=== PATIENT | male | born 1950 | race Caucasian/White ===

== ENCOUNTER 2017-01-17 11:17 | Emergency (ER) | payer MEDICARE, BC ==
[2017-01-17 12:39] LABS: BASOPHILS 0.2 % (0-2); EOSINOPHILS 0.3 % (0-7); HEMATOCRIT 37.5 % (42.0-54.0); HEMOGLOBIN 12.9 g/dL (13.5-17.5); IMMATURE GRANULOCYTES 0.4 % (0-5); LYMPHOCYTES 10.3 % (15-50); MCH 35.1 pg (26.0-34.0); MCHC 34.4 g/dL (31.0-37.0); MCV 101.9 fL (80.0-100.0); MEAN PLATELET VOLUME 10.8 fL (7.4-10.4); MONOCYTES 7.7 % (2-11); NEUTROPHILS 81.1 % (40-80); PLATELET COUNT 241 10x3/uL (130-400); RBC 3.68 10x6/uL (4.20-6.10); RDW 13.2 % (11.5-14.5); WBC 13.6 10x3/uL (4.8-10.8)
[2017-01-17 15:28] LABS: ALBUMIN 3.4 g/dL (3.4-5.0); ALKALINE PHOSPHATASE 109 U/L (46-116); ALT (SGPT) 33 U/L (10-68); CALC OSMOLALITY 282 mosm/kg (275-300); CALCIUM 9.7 mg/dL (8.5-10.1); CHLORIDE - SERUM 101 mmol/L (98-107); CREATININE - SERUM 1.8 mg/dL (0.6-1.3); GLUCOSE 117 mg/dL (74-106); POTASSIUM - SERUM 4.2 mmol/L (3.5-5.1); PROTEIN - SERUM 7.2 g/dL (6.4-8.2); SODIUM 138 mmol/L (136-145); UREA NITROGEN 29 mg/dL (7-18); eGFR NON AFRICAN AMERICAN 40 mL/min (90-120)
[2017-01-17 15:35] LABS: CREATINE KINASE 79 UL (21-232); MAGNESIUM - SERUM 1.8 mg/dL (1.8-2.4); PRO BNP 456 pg/mL (0-125); TROPONIN-I < 0.017 ng/mL (0.000-0.060)
== END 2017-01-17 17:11 | disposition home or self-care (01) ==
LOC: D.ER 11:17
PROVIDERS: Emergency Medicine
DX: R55 Syncope and collapse (principal); N17.9 Acute kidney failure, unspecified; E86.0 Dehydration; D64.9 Anemia, unspecified; I10 Essential (primary) hypertension; F17.200 Nicotine dependence, unspecified, uncomplicated

== ENCOUNTER → 2017-03-01 10:45 | Outpatient (CLI) | payer MEDICARE, BC ==
[~2017-03-01] VITALS: Ht 177.8 cm; Wt 61.4 kg
--- NOTE | ~2017-03-01 | HEMODYNAMI ---
PATIENT:BOBBY SINGER MEDICAL RECORD: [id number] : 52 LOCATION:[facility] ADMISSION DATE: 03/01/17 Generatedon:03/01/201714:13 Patient name: BOBBY SINGER Patient #: [id number] SSN: : [birth year] Date of study: 03/01/2017 Page: Of Hemodynamic Procedure Report Patient Data Patient Demographics Procedure consent was obtained First Name: BOBBY Gender: Male Last Name: ENMANUEL : 1950 Middle Initial: FINA Age: 67 year(s) Patient #: [id number] Race: Unknown Additional ID: [id number] Contact details Address: [place] [address] State: [place] City: [place] Zip code: [address] Past Medical History Allergies: No known allergies Admission Admission Data Admission Date: 03/01/2017 Admission Time: 10:45 Height (in.): 60 BSA: 1.58 (m2) Height (cm.): 152.4 BMI: 26.37 (kg/m2) Weight (lbs.): 135 Weight (kg.): 61.23 Procedure Procedure Types Cath Procedure Diagnostic Procedure C [facility] w/Coronaries Miscellaneous Procedures Moderate Sedation up to 15 minutes Procedure Description Procedure Date Procedure Date: 03/01/2017 Procedure Start Time: 14:02 Procedure End Time: 14:08 Procedure Staff Name Function Jorge Mario MD Performing Physician Raúl Ivy RT Scrub Alyson Dunn RN Nurse Dharmesh Canales RN Regional Wildlife Agent Chantal Quezada RT Monitor Procedure Data Cath Procedure Fluoroscopy Diagnostic fluoroscopy Total fluoroscopy Time: 0.7 time: 0.7 min min Diagnostic fluoroscopy Total fluoroscopy dose: 137 dose: 137 mGy mGy Contrast Material Contrast Material Type Amount (ml) Isovue 300 39 Entry Location Entry Primary Successful Side Size Upsize Upsize Entry Closure Succes sful Closure Location (Fr) 1 (Fr) 2 (Fr) Remarks Device Remarks Radial Right 6 Fr artery Short Estimated blood loss: 12 ml Diagnostic catheters Device Type Used For End Catheter Placement Diagnostic Terumo 5Fr Procedure [place] 110cm catheter Procedure Complications No complications Procedure Medications Medication Administration Route Dosage Oxygen NC 2 l/min Lidocaine 2% added to field 20 Heparin Flush Bag added to field 2 bags (1000units/500ml NS) 0.9% NaCl I.V. 100 ml/hr Versed I.V. 1 mg Fentanyl I.V. 50 mcg Radial Cocktail I.A. 1 syringe (Verapomil 2mg/Nitro 400mcg/Heparin 1500units) Versed I.V. 1 mg Fentanyl I.V. 50 mcg Hemodynamics Rest BSA: 1.58 (m2) O2 Consumption: Estimated: 194.16 (ml/min) O2 Consumption indexed : Estimated:122.89 (ml/min/m) Heart Rate: 87 (bpm) Pressure Samples Time Site Value (mmHg) Purpose Heart Use Rate(bpm) 14:04 LV 89/25,2 Snapshot 87 14:04 AO 106/70(87) Pullback 68 14:04 LV 90/-1,2 Pullback 68 Gradients Valve Time Site 1 Site 2 Mean SEP/DFP Peak To Heart Use (mmHg) (sec/min) Peak Rate (mmHg) (bpm) Aortic 14:04 LV AO 0 68 90/-1,2 106/70(87) Calculations Valve P-P Mean Valve Index Valve Source Name Gradient Area Flow (cm2) Aortic 0 0 Snapshots Pre Cath Intra NCS Post Cath Vital Signs Time Heart Resp SPO2 etCO2 [id number] NIBP (mmHg) Rhythm Pain Sedation Rate (ipm) (%) (mmHg) (mmHg) Status Level (bpm) 13:54:37 72 18 98 0 0 140/87(121) NSR 0 (11) 10(A) , No pain 14:01:15 75 16 98 0 0 138/91(118) NSR 0 (11) 9(A) , No pain 14:05:27 78 15 97 0 0 117/80(95) NSR 0 (11) 9(A) , No pain 14:10:38 77 16 97 0 0 129/86(105) NSR 0 (11) 10(A) , No pain Medications Time Medication Route Dose Verified Delivered Reason Notes Effectiveness by by 13:50:31 Oxygen NC 2 l/min Jorge Shields used for [facility] Miguel Dunn entry level java developer 13:50:41 Lidocaine 2% added 20ml Jorge Patel for local to vial [facility] anesthetic field MD MOCK 13:50:48 Heparin Flush added 2 bags Jorge Patel used for Bag to [facility] procedure (1000units/500ml field MD MOCK NS) 13:50:56 0.9% NaCl I.V. 100 Jorge Shields Per ml/hr St. Miguel rojas MD 13:55:35 Versed I.V. 1 mg Jorge Shields for sedation St. Miguel Dunn RN, MD 13:55:41 Fentanyl I.V. 50 mcg Jorge Shields for sedation St. Miguel Dunn RN, MD 14:02:00 Versed I.V. 1 mg Jorge Shields for sedation St. Miguel Dunn RN, MD 14:02:02 Radial Cocktail I.A. 1 Jorge Patel for (Verapomil syringe [facility] vasodilation 2mg/Nitro MD MOCK 400mcg/Heparin 1500units) 14:02:05 Fentanyl I.V. 50 mcg Jorge Shields for sedation St. Miguel Dunn RN, MD Procedure Log Time Note 13:33:41 Dharmesh Canales RN sent for patient. Start room use. 13:33:42 Time tracking: Regular hours 13:33:45 Plan of Care:Hemodynamics will remain stable., Cardiac rhythm will remain stable., Comfort level will be maintained., Respiratory function will remain adequate., Patient/ family verbilizes understanding of procedure., Procedure tolerated without complication., Recovers from procedure without complications.. 13:39:32 Patient received from Pre/Post Procedure Room to [facility] Alert and oriented. Tansferred to table in Supine position. 13:39:33 Warm blankets applied, and alicia hugger turned on for patient comfort. 13:39:34 Correct patient and procedure confirmed by team. 13:39:38 Signed procedure consent form obtained from patient. 13:40:14 H&P Date Dictated: 01/29/2017 Within 30 days and on chart., H&P Addendum completed by physician on day of procedure. (MUST COMPLETE FOR ALL OUTPATIENTS). 13:40:16 Pre-procedure instructions explained to patient. 13:40:19 Family in waiting room. 13:40:22 Patient NPO since Midnight. 13:40:39 Patient allergic to No known allergies 13:40:48 Is the patient allergic to Iodine/contrast media? No. 13:40:52 Is patient on blood thinner?No 13:40:58 Patient diabetic? No. 13:41:02 Snore? Yes 13:41:03 Sleep apnea? No 13:41:24 IV patent on arrival in left forearm with 0.9% NaCl at [facility]. 13:41:38 Lab results completed and on chart. 13:50:31 Oxygen 2 l/min NC was administered by Alyson Dunn RN; used for procedure; 13:50:41 Lidocaine 2% 20ml vial added to field was administered by Jorge Mario MD; for local anesthetic; 13:50:48 Heparin Flush Bag (1000units/500ml NS) 2 bags added to field was administered by Jorge Mario MD; used for procedure; 13:50:56 0.9% NaCl 100 ml/hr I.V. was administered by Alyson Dunn RN; Per physician; 13:54:57 Right Radial & Right Groin area was prepped with chlora-prep and draped in sterile fashion 13:54:59 Alarms reviewed by R. N. 13:55:01 Sharps counted by scrub and verified by R.N. 13:55:03 Physician arrived 13:55:04 --------ALL STOP TIME OUT------ 13:55:04 Final Timeout: patient, procedure, and site verified with staff and physician. All members of the team are in agreement. 13:55:07 Right Radial & Right Groin site verified by team. 13:55:10 Physical assessment completed. ASA score P 2 - A patient with mild systemic disease as per Jorge Mario MD. 13:55:14 Sedation plan: IV Moderate Sedation Versed, Fentanyl 13:55:26 Use device set Radial Dx 13:55:27 Acist Syringe opened to sterile field. 13:55:28 Medline Cath Pack opened to sterile field. 13:55:28 Bag Decanter opened to sterile field. 13:55:29 Terumo 6Fr Slender Glidesheath opened to sterile field. 13:55:29 St Juliano 260cm J .035 wire opened to sterile field. 13:55:29 Acist Hand Control opened to sterile field. 13:55:30 Acist Manifold opened to sterile field. 13:55:30 Tegaderm 4 x 4 opened to sterile field. 13:55:32 MBrace Wrist Support opened to sterile field. 13:55:35 Versed 1 mg I.V. was administered by Alyson Dunn RN; for sedation; 13:55:41 Fentanyl 50 mcg I.V. was administered by Alyson Dunn RN; for sedation; 13:56:08 Patient Height : 60 cm 13:56:22 Patient Weight : 135 kg 13:57:29 Vital chart was started 14:02:00 Versed 1 mg I.V. was administered by Alyson Dunn RN; for sedation; 14:02:02 Radial Cocktail (Verapomil 2mg/Nitro 400mcg/Heparin 1500units) 1 syringe I.A. was administered by Jorge Mario MD; for vasodilation; 14:02:05 Fentanyl 50 mcg I.V. was administered by Alyson Dunn RN; for sedation; 14:02:26 Procedure started. 14:02:26 Full Disclosure recording started 14:02:37 Local anesthetic to right radial artery with Lidocaine 2% by Jorge Mario MD.INITIAL ACCESS ONLY 14:02:49 A 6 Fr Short sheath was inserted into the Right Radial artery 14:03:17 A Diagnostic Terumo 5Fr [place] 110cm catheter was advanced over the wire and used for Procedure. 14:03:28 Zero performed for pressure channel P1 14:03:33 Zero performed for pressure channel P1 14:03:36 Zero performed for pressure channel P1 14:03:41 Zero performed for pressure channel P1 14:04:54 LV angiography performed. 14:05:01 RCA angiography performed. 14:06:07 LCA angiography performed. 14:06:11 Catheter removed. 14:06:18 Terumo TR Band Standard opened to sterile field. 14:06:56 Procedure ended.(Physican Out) 14:07:08 Fluoroscopy time 00.70 minutes. 14:07:19 Fluoroscopy dose: 137 mGy 14:07:19 Flurop Dose total: 137 14:07:24 Contrast amount:Isovue 300 39ml. 14:07:26 Sharps counted by scrub and verified by R.N. 14:07:31 TR band inflated with 10cc of air. 14:07:45 Post-procedure physical assessment completed. ASA score P 2 - A patient with mild systemic disease as per Jorge Mario MD. 14:07:48 Post procedure rhythm: unchanged. 14:07:51 Estimated blood loss: 12 ml 14:07:53 Post procedure instruction explained to patient.Patient verbalizes understanding. 14:07:56 Patient needs reinforcement of post procedure teaching. 14:08:09 Procedure and supply charges have been captured, reviewed, submitted and are correct. 14:08:32 Procedure Complication : No complications 14:08:34 Vital chart was stopped 14:08:43 See physician's report for complete and final results. 14:08:51 Report given to Pre/Post Procedure Room. 14:08:55 Patient transfered to Pre/Post Procedure Room with Stretcher. 14:08:58 Procedure ended. 14:08:58 Full Disclosure recording stopped 14:09:00 End room use (Document Last) Device Usage Item Name Manufacture Quantity Catalog Hospital Part Current Minimal Lot# / Number Charge Number Stock Stock Serial# Code Acist Acist 1 29495 [id number] 046572 [id number] 20 Syringe Medical Systems Inc Medline Cardinal 1 [id number] 686697 56228 577697 5 Cath Pack Health Bag Microtek 1 2001S 889020 69437 178914 5 DecZolpy [employer] Inc. Terumo 6Fr Terumo 1 [id number] 373535 680752 526042 [address] St Juliano 1 072676 949403 315390 631078 30 260cm J .035 wire Acist Hand Acist 1 16688 034369 367598 900762 5 Control Medical Systems Inc Acist Acist 1 40661 883793 241668 731542 5 Manifold Medical Systems Inc Tegaderm 4 3M 1 1626W 953963 834278 563855 5 x 4 MBrace Advanced 1 140-0250-00 209233 74247 168383 5 Wrist Vascular Support Dynamics Diagnostic Terumo 1 29-2608 861305 993566 490584 5 Terumo 5Fr [place] 110cm catheter Terumo TR Terumo 1 [id number] 715025 318607 293256 40 Band Standard Signature Audit [place] Stage Time Signature Unsigned Intra-Procedure 03/01/2017 Chantal Quezada 2:13:54 PM RT(R) Signatures Monitor : Chantal Quezada Signature : RT Date : Time : [address] [place] [address]
[~2017-03-01 10:45] MED LIST: TOPROL XL50 MG PO
[2017-03-01 11:18] VITALS: BP 188/104; Ht 177.8 cm; Wt 61.4 kg
[2017-03-01 11:35] LABS: BASOPHILS 0.2 % (0-2); EOSINOPHILS 1.5 % (0-7); HEMATOCRIT 36.2 % (42.0-54.0); HEMOGLOBIN 12.6 g/dL (13.5-17.5); IMMATURE GRANULOCYTES 0.3 % (0-5); LYMPHOCYTES 20.6 % (15-50); MCH 35.2 pg (26.0-34.0); MCHC 34.8 g/dL (31.0-37.0); MCV 101.1 fL (80.0-100.0); MEAN PLATELET VOLUME 10.7 fL (7.4-10.4); MONOCYTES 10.4 % (2-11); PLATELET COUNT 268 10x3/uL (130-400); RBC 3.58 10x6/uL (4.20-6.10); RDW 13.1 % (11.5-14.5); WBC 9.9 10x3/uL (4.8-10.8)
[2017-03-01 11:55] LABS: CALCIUM 9.1 mg/dL (8.5-10.1); CARBON DIOXIDE 25.7 mmol/L (21.0-32.0); CREATININE - SERUM 1.6 mg/dL (0.6-1.3); POTASSIUM - SERUM 4.7 mmol/L (3.5-5.1)
--- NOTE | 2017-03-01 15:13 | NUR ---
1445 VSS CHEST PAIN IS DENIED WILL MONITOR
--- NOTE | 2017-03-01 15:17 | NUR ---
DR CALZADA PRESENT AT BEDSIDE TALKING TO FAMILY VSS WITH TR BAND TO R/WRIST CDI
--- NOTE | 2017-03-02 08:33 | OP ---
PATIENT NAME: BOBBY SINGER MEDICAL RECORD: [id number] :52 LOCATION:D[facility] ADMISSION DATE: SURGEON: JAMES CALZADA MD DATE OF OPERATION: 03/01/2017 PROCEDURE: Left heart catheterization, selective coronary angiography, right radial approach. CATHETERS: A 5-[place] sheath, [place] catheter. The procedure was well tolerated. The patient returned to the pederson, sheath removed. TR band was placed. FINDINGS: Left ventriculography in 30-degree ODOM view: Normal wall motion, normal systolic function. CORONARY ANATOMY: LEFT MAIN: Left main is free of disease. LAD: LAD is free of disease in the diagonal system. CIRCUMFLEX: Circumflex is free of disease in the marginal system. RIGHT CORONARY ARTERY: Dominant artery, gives rise to PDA, free of disease. IMPRESSION: Normal systolic function. Normal coronary anatomy. TRANSINT:[id number] Voice Confirmation ID: [id number] DOCUMENT ID: [id number] JAMES CALZADA MD at 0833 CC: [id number] DICTATION DATE: 03/01/17 1410 JUNIOR SOFTWARE ENGINEER: 03/01/17 1721 DEP CLI 03/01/17 [facility] [address] [place] [address]
== END | disposition home or self-care (01) ==
LOC: D.CATH 10:45
PROVIDERS: Internal Medicine Interventional Cardiology
DX: R94.39 Abnormal result of other cardiovascular function study (principal); Z01.812 Encounter for preprocedural laboratory examination

== ENCOUNTER 2019-09-26 16:45 | Inpatient (IN) | payer MEDICARE, BC ==
[~2019-09-26] VITALS: Ht 177.8 cm; Wt 57.6 kg
[2019-09-26] VITALS (8 sets, daily range): BP systolic 123–179; BP diastolic 79–108; BMI 18.2
--- NOTE | ~2019-09-26 | HP ---
PATIENT: BOBBY SINGER MEDICAL RECORD: [id number] ACCOUNT: [id number] LOCATION:[facility] D.2311 : 52 ADMISSION DATE: 09/26/19 PCP: MAIKEL GILLETTE MD HISTORY AND PHYSICAL EXAMINATION CHIEF COMPLAINT: Cough. HISTORY OF PRESENT ILLNESS: A 69-year-old white male patient of mine presents in clinic today reporting cough for the past 1-2 weeks with shortness of breath. He is a current half pack a day smoker and had been smoking for about 45 years. On exam, the patient has decreased breath sounds in the left side. Chest x-ray showing hyperinflation with left pneumothorax 5 x 20; 25%, small left pleural effusion and some left lower lobe atelectasis. We will admit for further workup. PAST MEDICAL HISTORY: COPD and hypertension, hyperthyroidism, diverticulosis, chronic kidney disease stage III, macrocytic anemia, history of anterior uveitis, and internal hemorrhoids. PAST SURGICAL HISTORY: Colonoscopy in 2017. MEDICATIONS: Amlodipine 10 mg. ALLERGIES: No known drug allergies. SOCIAL HISTORY: The patient is a current smoker, moderate alcohol intake. Lives with at home, retired, works on the farm. REVIEW OF SYSTEMS: CONSTITUTIONAL: Denies fever or chills. HEENT: Normocephalic, atraumatic. NECK: Supple. CARDIOVASCULAR: Tachycardia. Denies chest pain. RESPIRATORY: Positive for cough, wheezing, and shortness of breath. GASTROINTESTINAL: No abdominal pain, nausea, vomiting, diarrhea. GENITOURINARY: No dysuria. SKIN: No rashes. NEUROLOGIC: No seizures or paralysis. No itching or hives. PHYSICAL EXAMINATION: GENERAL: No acute distress. HEENT: Normocephalic, atraumatic. NECK: Supple. LUNGS: Decreased breath sounds on the left side. No wheezing or rales. CARDIOVASCULAR: Tachycardic, regular sinus rhythm. ABDOMEN: Soft, nontender to palpation. Bowel sounds positive. MUSCULOSKELETAL: Full range of all extremities. NEUROLOGIC: Awake, alert, oriented times 3. SKIN: Intact. ASSESSMENT AND PLAN: 1. Spontaneous pneumothorax. 2. Chronic kidney disease stage III. 3. Hypertension. 4. Cough. HISTORY AND PHYSICAL [id number] BOBBY SINGER PLAN: We will admit to the hospital ICU. Consult pulmonology and interventional radiology. Further orders as written on chart. TRANSINT:[id number] Voice Confirmation ID: [id number] DOCUMENT ID: [id number] MAIKEL GILLETTE MD CC: [id number] DICTATION DATE: 09/26/19 163 RETAIL PRESENTATION SPECIALIST: 09/26/19 192 ADM IN [place] [address] [place] [address]
[2019-09-26] MEDS ORDERED: NORVASC10 MG PO (16:59)
--- NOTE | 2019-09-26 17:24 | NUR ---
PT TO ICU FROM ADMISSIONS. PT WALKING WITHOUT DIFFICULTY. NO SOB NOTED. PT STATES HE DOES GET NERVOUS AROUND DOCTORS (BP IS ELEVATED). O2 SAT 98% ON ROOM AIR. PT HOOKED UP TO VITALS. ORDERS ENTERED CONSULT TO IR AND PULMONOLOGY CALLED.
[2019-09-26 19:19] LABS: BASOPHILS 0.4 % (0-2); EOSINOPHILS 3.2 % (0-7); HEMATOCRIT 33.6 % (42.0-54.0); HEMOGLOBIN 11.7 g/dL (13.5-17.5); IMMATURE GRANULOCYTES 0.2 % (0-5); LYMPHOCYTES 13.9 % (15-50); MCH 35.7 pg (26.0-34.0); MCHC 34.8 g/dL (31.0-37.0); MCV 102.4 fL (80.0-100.0); MEAN PLATELET VOLUME 10.8 fL (7.4-10.4); MONOCYTES 7.6 % (2-11); NEUTROPHILS 74.7 % (40-80); PLATELET COUNT 273 10x3/uL (130-400); RBC 3.28 10x6/uL (4.20-6.10); RDW 13.8 % (11.5-14.5); WBC 11.7 10x3/uL (4.8-10.8)
[2019-09-26 20:12] LABS: ALBUMIN 3.1 g/dL (3.4-5.0); ANION GAP 14.8 mmol/L (8-16); BILIRUBIN - TOTAL 0.93 mg/dL (0.2-1.3); C-REACTIVE PROTEIN 3.3 mg/dL (0.0-0.9); CALCIUM 9.2 mg/dL (8.5-10.1); CARBON DIOXIDE 24.5 mmol/L (21.0-32.0); CREATININE - SERUM 2.1 mg/dL (0.6-1.3); POTASSIUM - SERUM 4.3 mmol/L (3.5-5.1); PROTEIN - SERUM 6.9 g/dL (6.4-8.2)
[2019-09-27] VITALS (22 sets, daily range): BP systolic 105–177; BP diastolic 63–99; Ht 177.8 cm; Wt 57.6 kg
[2019-09-27 04:36] LABS: BASOPHILS 0.1 % (0-2); EOSINOPHILS 0.1 % (0-7); HEMATOCRIT 32.1 % (42.0-54.0); IMMATURE GRANULOCYTES 0.3 % (0-5); LYMPHOCYTES 6.3 % (15-50); MCH 35.3 pg (26.0-34.0); MCHC 34.3 g/dL (31.0-37.0); MCV 102.9 fL (80.0-100.0); MEAN PLATELET VOLUME 11.2 fL (7.4-10.4); MONOCYTES 1.5 % (2-11); NEUTROPHILS 91.7 % (40-80); PLATELET COUNT 272 10x3/uL (130-400); RBC 3.12 10x6/uL (4.20-6.10); RDW 13.8 % (11.5-14.5)
[2019-09-27 04:48] LABS: WBC 6.7 10x3/uL (4.8-10.8)
[2019-09-27 04:58] LABS: ALBUMIN 2.9 g/dL (3.4-5.0); BILIRUBIN - TOTAL 1.02 mg/dL (0.2-1.3); CALCIUM 9.1 mg/dL (8.5-10.1); CARBON DIOXIDE 22.7 mmol/L (21.0-32.0); CREATININE - SERUM 1.9 mg/dL (0.6-1.3); MAGNESIUM - SERUM 1.6 mg/dL (1.8-2.4); PHOSPHOROUS 4.2 mg/dL (2.5-4.9); PROTEIN - SERUM 6.7 g/dL (6.4-8.2)
[2019-09-27 05:10] LABS: ANION GAP 17.5 mmol/L (8-16); POTASSIUM - SERUM 5.2 mmol/L (3.5-5.1)
[2019-09-27 05:24] LABS: INR 0.92 (0.85-1.17); PROTIME 12.4 SECONDS (11.6-15.0)
[2019-09-27 05:25] LABS: APTT 38.9 SECONDS (22.8-39.4)
--- NOTE | 2019-09-27 05:42 | NUR ---
1900 - REPORT RECEIVED, PT AAOX4, NO ACUTE DISTRESS NOTED. ASSESSMENT COMPLETED, SEE FLOWSHEET. PIV IN LEFT FOREARM, SEE IV FLOWSHEET. DR CAMARENA IN ROOM AT THIS TIME, WILL CONTINUE TO MONITOR. 2100 - PT DENIES SOB, MADE AWARE OF NPO STATUS. 2300 - PT RESTING IN BED, NO ACUTE DISTRESS NOTED. 0100 - NO CHANGES SINCE PREVIOUS STATUS. 0300 - REASSESSMENT COMPLETE, PT DENIES SOB 0500 - VITALS STABLE, NO ACUTE DISTRESS NOTED.
--- NOTE | 2019-09-27 08:09 | NUR ---
patient gone to radiology
--- NOTE | 2019-09-27 08:57 | NUR ---
patient arrived to unit
--- NOTE | 2019-09-27 12:18 | NUR ---
tiny airleak in ct chamber
--- NOTE | 2019-09-27 15:00 | NUR ---
no airleak in ct chamber during this time. 20 of suction. will continue to monitor
[2019-09-28] VITALS (15 sets, daily range): BP systolic 100–123; BP diastolic 60–83
[2019-09-28 04:19] LABS: BASOPHILS 0 % (0-2); EOSINOPHILS 0 % (0-7); HEMATOCRIT 30.6 % (42.0-54.0); HEMOGLOBIN 10.5 g/dL (13.5-17.5); IMMATURE GRANULOCYTES 0.3 % (0-5); MCH 35.4 pg (26.0-34.0); MCHC 34.3 g/dL (31.0-37.0); MONOCYTES 6.1 % (2-11); NEUTROPHILS 89.6 % (40-80); PLATELET COUNT 244 10x3/uL (130-400); RBC 2.97 10x6/uL (4.20-6.10); RDW 13.9 % (11.5-14.5)
[2019-09-28 04:23] LABS: WBC 19.3 10x3/uL (4.8-10.8)
[2019-09-28 04:28] LABS: INR 0.9 (0.85-1.17); PROTIME 12.1 SECONDS (11.6-15.0)
[2019-09-28 04:32] LABS: ANION GAP 14.3 mmol/L (8-16); CALCIUM 8.8 mg/dL (8.5-10.1); CARBON DIOXIDE 24.8 mmol/L (21.0-32.0); CREATININE - SERUM 2.3 mg/dL (0.6-1.3); MAGNESIUM - SERUM 1.6 mg/dL (1.8-2.4); PHOSPHOROUS 3.9 mg/dL (2.5-4.9)
[2019-09-28 04:53] LABS: POTASSIUM - SERUM 4.1 mmol/L (3.5-5.1)
--- NOTE | 2019-09-28 07:00 | NUR ---
report received. patient sleeping. easilya aroused. see assessment. see adl's. consents signed and in chart for bronch today with dr sethi. no airleak noticed in chamber. connected to 20 of suction. dressing cdi. diminished left lower lobe. will continue to monitor.
--- NOTE | 2019-09-28 09:04 | NUR ---
IR AT BEDSIDE
--- NOTE | 2019-09-28 10:30 | NUR ---
spoke with cupola charger insulation regarding moderate sedation.
--- NOTE | 2019-09-28 10:30 | NUR ---
DR CAMARENA AT BEDSIDE
--- NOTE | 2019-09-28 13:20 | NUR ---
ALERT AND ORIENTED. ADVANCING DIET.
--- NOTE | 2019-09-28 13:55 | NUR ---
gave report to ramos
--- NOTE | 2019-09-28 14:18 | NUR ---
RECEIVED PATIENT FROM ICU. ALERT AND ORIENTED. UP AD HANSEL. CHEST TUBE TO LEFT LATERAL SIDE ON CONTINUOUS SUCTION. NO C/O PAIN. NO S/S OF ACUTE DISTRESS NOTED. IV TO LEFT FOREARM, SL. SITE PATENT WITHOUT REDNESS OR SWELLING. DENIES ANY NEEDS AT THIS TIME. CALL LIGHT IN REACH. WILL CONTINUE TO MONITOR.
--- NOTE | 2019-09-28 16:09 | NUR ---
I have reviewed this patient and I concur with the Shift Assessment completed by the Licensed Practical Nurse today this shift.
--- NOTE | 2019-09-28 18:40 | NUR ---
ALERT AND ORIENTED. NO C/O PAIN. NO S/S OF ACUTE DISTRESS NOTED. DENIES ANY NEEDS AT THIS TIME. CALL LIGHT IN REACH. WILL CONTINUE TO MONITOR.
--- NOTE | 2019-09-28 21:08 | MORECARE ---
CASE MANAGEMENT DISCHARGE SUMMARY PATIENT: BOBBY SINGER UNIT: [id number] ADM DATE: 09/26/19 AGE: 69 : 51 SEX: M ROOM/BED: D.2236 AUTHOR: ELIE,DOC PHYSICIAN: REFERRING PHYSICIAN: MAIKEL GILLETTE MD DATE OF SERVICE: 09/28/19 Discharge Plan Patient Name: BOBBY SINGER Facility: [facility]:[place] : 1950 Planned Disposition: Home Anticipated Discharge Date: Discharge Date: Expected LOS: Initial Reviewer: [email or web address] Initial Review Date: 09/26/2019 Generated: 09/28/19 10:07 pm Comments DCP- Discharge Planning Updated by [email or web address]: Nora Baldwin on 09/28/19 8:[address] Patient Name: BOBBY SINGER Admission Status: Urgent Accout number: [id number] Admission Date: 09-26-2019 : 1950 Admission Diagnosis: Attending: LETA, Current LOS: 2 Anticipated DC Date: Planned Disposition: Home Primary Insurance: MEDICARE A & B Discharge Planning Comments: CM met with patient at bedside after explaining CM role and obtaining verbal consent. Patient lives at home with his [place] where he is independent with his care and plans to return there upon discharge. Patient feels this would be a safe discharge. CM discussed availability / needs of home health and medical equipment. Patient denies any discharge needs at this time. Patient states he will have his family drive him home upon discharge. CM will continue to follow and assist as needed with discharge planning / needs. Clinical Rehabilitation Specialist: Nora Baldwin DCPIA - Discharge Planning Initial Assessment Updated by [email or web address]: Nora Baldwin on 09/28/19 9:03 pm * Is the patient Alert and Oriented? Yes * How many steps to enter\exit or inside your home? * PCP LETA * Pharmacy [facility] * Preadmission Environment Home with Family * ADLs Independent * Equipment None * List name and contact numbers for known caregivers / representatives who currently or will assist patient after discharge: KIRBY SINGER -[facility]- [phone] * Verbal permission to speak to the caregivers and representatives has been obtained from the patient. Yes * Community resources currently utilized None * Additional services required to return to the preadmission environment? No * Can the patient safely return to the preadmission environment? Yes * Has this patient been hospitalized within the prior 30 days at any hospital? No Patient Name: BOBBY SINGER Page [id number] at 2108 All edits/amendments must be made on the electronic document DICTATION DATE: 09/28/192106 SHAMPOO ASSISTANT: ОЛЕГ 09/28/192106 RPT#: [id number] DC DATE: STATUS: ADM IN [facility] [address] [place] [address] END OF REPORT
--- NOTE | 2019-09-29 02:08 | NUR ---
PT RESTING IN BED. EYES CLOSED. NO SIGNS OF DISTRESS. BREATHING EVEN AND UNLABORED. IV SITE LT FA DRESSING CLEAN DRY AND INTACT. NO SIGNS OF INFECTION OR INFULTRATION. BOWEL SOUNDS ACTIVE. LT CHEST TUBE IN PLACE. AND TO SUCTION. NO LOWER LEG SWELLING PRESENT. WILL CONTINUE PLAN OF CARE. CALL LIGHT IN REACH. BED LOWERED AND LOCKED. BED RAILS UPX2.
--- NOTE | 2019-09-29 03:02 | NUR ---
I have reviewed this patient and I concur with the Shift Assessment completed by the Licensed Practical Nurse today this shift.
[2019-09-29 04:00] VITALS: BP 130/80
[2019-09-29 06:13] LABS: BASOPHILS 0.1 % (0-2); EOSINOPHILS 2.1 % (0-7); HEMATOCRIT 30.1 % (42.0-54.0); HEMOGLOBIN 10.3 g/dL (13.5-17.5); IMMATURE GRANULOCYTES 0.3 % (0-5); LYMPHOCYTES 15.3 % (15-50); MCH 35.6 pg (26.0-34.0); MCHC 34.2 g/dL (31.0-37.0); MCV 104.2 fL (80.0-100.0); MONOCYTES 7.2 % (2-11); PLATELET COUNT 228 10x3/uL (130-400); RBC 2.89 10x6/uL (4.20-6.10); RDW 14.4 % (11.5-14.5)
[2019-09-29 06:32] LABS: ANION GAP 13.1 mmol/L (8-16); CALCIUM 8.4 mg/dL (8.5-10.1); CARBON DIOXIDE 24.8 mmol/L (21.0-32.0); CREATININE - SERUM 2.2 mg/dL (0.6-1.3); MAGNESIUM - SERUM 1.7 mg/dL (1.8-2.4); PHOSPHOROUS 3.6 mg/dL (2.5-4.9); POTASSIUM - SERUM 3.9 mmol/L (3.5-5.1)
[2019-09-29 06:54] LABS: WBC 10.3 10x3/uL (4.8-10.8)
[2019-09-29 08:44] VITALS: BP 126/74
--- NOTE | 2019-09-29 09:00 | NUR ---
ALERT AND ORIENTED X4. CHEST TUBE INTACT TO LEFT CHEST MIDLINE. LUNGS CTA. HRRR. DENIES ANY PAIN OR DISCOMFORT AT THIS TIME. IV TO LEFT F/A WITH NO S/S OF INFECTION/INFILTRATION. ENCOURAGED TO USE CALL LIGHT FOR ASSIST.
[2019-09-29 12:09] LABS: FUNGUS STAIN Final report (())
--- NOTE | 2019-09-29 12:56 | NUR ---
NUTRITION F/U CHART REVIEWED. PT TOLERATING RENAL DIET WITH 100% INTAKE RECENT MEALS. WILL CONTINUE TO PROVIDE DIET, MONITOR PO INTAKE. RD FOLLOWING
[2019-09-29 14:24] VITALS: BP 118/67
[2019-09-29 15:10] LABS: ACID FAST SMEAR Negative (()); AFB SPECIMEN PROCESSING Concentration (())
[2019-09-29 16:28] VITALS: BP 118/70
--- NOTE | 2019-09-29 18:23 | NUR ---
IV INFILTRATED TO LEFT FOREARM AND CHANGED TO RIGHT FOREARM WITH 22G X 1 STICK. NO COMPLAINTS OF PAIN OR DISCOMFORT WITH CHEST TUBE INTACT.
[2019-09-29 20:00] VITALS: BP 116/71
[2019-09-30] VITALS: BP 109/65
[2019-09-30 04:00] VITALS: BP 118/67
[2019-09-30 05:38] LABS: BASOPHILS 0.2 % (0-2); EOSINOPHILS 3.4 % (0-7); HEMATOCRIT 28.7 % (42.0-54.0); HEMOGLOBIN 9.8 g/dL (13.5-17.5); IMMATURE GRANULOCYTES 0.3 % (0-5); LYMPHOCYTES 13.5 % (15-50); MCH 35.5 pg (26.0-34.0); MCHC 34.1 g/dL (31.0-37.0); MONOCYTES 8.5 % (2-11); NEUTROPHILS 74.1 % (40-80); PLATELET COUNT 215 10x3/uL (130-400); RBC 2.76 10x6/uL (4.20-6.10); RDW 14.8 % (11.5-14.5); WBC 9.7 10x3/uL (4.8-10.8)
[2019-09-30 05:51] LABS: ANION GAP 10.8 mmol/L (8-16); CALCIUM 8.4 mg/dL (8.5-10.1); CARBON DIOXIDE 25.1 mmol/L (21.0-32.0); MAGNESIUM - SERUM 1.8 mg/dL (1.8-2.4); PHOSPHOROUS 3.3 mg/dL (2.5-4.9); POTASSIUM - SERUM 3.9 mmol/L (3.5-5.1)
[2019-09-30 07:58] VITALS: BP 113/74
--- NOTE | 2019-09-30 09:00 | NUR ---
ALERT AND ORIENTED X4. LUNGS CTA WITH NO DYSPNEA NOTED. IV S/L TO RT. F/A WITH NO S/S OF INFECTION/INFILTRATION. ABDOMEN SOFT WITH BOEL SOUNDS NOTED X4. UP ADLIB. DENIES ANY PAIN OR DISCOMFORT AND ENCOURAGED TO USE CALL LIGHT FOR ASSIST.
[2019-09-30 12:24] VITALS: BP 125/75
[2019-09-30] MEDS ORDERED: Tessalon Perle PO (14:08)
[2019-09-30] MEDS ORDERED: MUCINEX DM ER1 EAC1 PO (14:08)
[2019-09-30] MEDS ORDERED: LEVAQUIN750 MG PO (14:11)
--- NOTE | 2019-09-30 15:52 | NUR ---
RX FOR CAM RAJAN DID NOT E SCRIBE. CALLED TO [facility], SPOKE WITH TRAM, PHARMACIST.
--- NOTE | 2019-09-30 16:15 | NUR ---
IV DISCONTINUED AND VERBALIZED UNDERSTANDING OF DISCHARGE INSTRUCTIONS. STABLE AT TIME OF DEPARTURE WITH FAMILY
[2019-10-01 03:01] LABS: IMMUNOGLOBULIN E 16 IU/mL (6-495)
--- NOTE | 2019-10-04 06:51 | MORECARE ---
CASE MANAGEMENT DISCHARGE SUMMARY PATIENT: MARCOS DISLA UNIT: [id number] ADM DATE: 09/26/19 AGE: 69 : 52 SEX: M ROOM/BED: D.2236 AUTHOR: ELIE,DOC PHYSICIAN: REFERRING PHYSICIAN: MAIKEL GILLETTE MD DATE OF SERVICE: 10/04/19 Discharge Plan Patient Name: MARCOS DISLA Facility: [facility]:[place] : 1950 Planned Disposition: Home Anticipated Discharge Date: Discharge Date: 09/30/2019 Expected LOS: 0 Initial Reviewer: [email or web address] Initial Review Date: 09/26/2019 Generated: 10/04/19 7:51 am Comments DCP- Discharge Planning Updated by [email or web address]: Nora Baldwin on 09/28/19 7:[address] Patient Name: MARCOS DISLA Admission Status: Urgent Accout number: [id number] Admission Date: 09-26-2019 : 1950 Admission Diagnosis: Attending: LETA, Current LOS: 2 Anticipated DC Date: Planned Disposition: Home Primary Insurance: MEDICARE A & B Discharge Planning Comments: CM met with patient at bedside after explaining CM role and obtaining verbal consent. Patient lives at home with his [place] where he is independent with his care and plans to return there upon discharge. Patient feels this would be a safe discharge. CM discussed availability / needs of home health and medical equipment. Patient denies any discharge needs at this time. Patient states he will have his family drive him home upon discharge. CM will continue to follow and assist as needed with discharge planning / needs. Molder Operator: Nora Baldwin DCPIA - Discharge Planning Initial Assessment Updated by [email or web address]: Nora Baldwin on 09/28/19 9:03 pm * Is the patient Alert and Oriented? Yes * How many steps to enter\exit or inside your home? * PCP LETA * Pharm[facility] * Preadmission Environment Home with Family * ADLs Independent * Equipment None * List name and contact numbers for known caregivers / representatives who currently or will assist patient after discharge: KIRBY DISLA -SPOUSE- [phone] * Verbal permission to speak to the caregivers and representatives has been obtained from the patient. Yes * Community resources currently utilized None * Additional services required to return to the preadmission environment? No * Can the patient safely return to the preadmission environment? Yes * Has this patient been hospitalized within the prior 30 days at any hospital? No Coverage Notice Reviewer: [id number] Gabino De La Rosa Notice Issued Date-Time: 09/30/2019 16:11 Notice Type: IM Discharge Notice Notice Delivered To: Patient Relationship to Patient: Self Counter Clerk Name: Marcos Disla Delivery Method: HAND - Hand Delivered Georgina Days: Prior Verbal Notification: Recipient Understood Notice: Yes Recipient Signature: Yes Med Rec Note Co-signed by Attending: Coverage Notice Comment: DC IMM delivered to and signed by the patient and one placed on the chart. Last DP export: 09/28/19 7:08 pm Patient Name: MARCOS DISLA Page [id number] at 0651 All edits/amendments must be made on the electronic document DICTATION DATE: 10/04/19650 ACCOUNTING COORDINATOR: ОЛЕГ 10/04/19 0651 RPT#: [id number] DC DATE:09/30/19 STATUS: DIS IN [facility] [address] [place] [address] END OF REPORT
== END 2019-09-30 16:15 | disposition home or self-care (01) | DRG 200 ==
LOC: D.ICU 16:45 → D.MS 09-28 13:59
PROVIDERS: Emergency Medicine; Internal Medicine Pulmonary Disease; Specialist; ADMIT Family Medicine; ATTEND Family Medicine
PROC: 0W9B30Z Drainage of Left Pleural Cavity with Drainage Device, Percutaneous Approach (ICD-10-PCS; principal; 2019-09-27 08:18)
PROC: 0B9B8ZZ Drainage of Left Lower Lobe Bronchus, Via Natural or Artificial Opening Endoscopic (ICD-10-PCS; 2019-09-28)
DX: J93.83 Other pneumothorax (principal); N17.9 Acute kidney failure, unspecified; J44.1 Chronic obstructive pulmonary disease with (acute) exacerbation; J44.0 Chronic obstructive pulmonary disease with (acute) lower respiratory infection; E44.0 Moderate protein-calorie malnutrition; Z68.1 Body mass index [BMI] 19.9 or less, adult; I12.9 Hypertensive chronic kidney disease with stage 1 through stage 4 chronic kidney disease, or unspecified chronic kidney disease; N18.3 Chronic kidney disease, stage 3 (moderate); E87.5 Hyperkalemia; F10.10 Alcohol abuse, uncomplicated; J20.9 Acute bronchitis, unspecified; F17.200 Nicotine dependence, unspecified, uncomplicated

== ENCOUNTER → 2020-03-18 12:48 | Outpatient (CLI) | payer MEDICARE, BC ==
[2019-09-27 09:44] VITALS: BMI 18.2
[~2020-03-18 12:48] MED LIST changes: +LEVAQUIN750 MG PO; +MUCINEX DM ER1 EAC1 PO; +NORVASC10 MG PO; +Tessalon Perle PO
== END | disposition home or self-care (01) ==
LOC: D.RT 12:48
PROVIDERS: ATTEND Internal Medicine Pulmonary Disease
DX: J44.9 Chronic obstructive pulmonary disease, unspecified (principal); Z11.59 Encounter for screening for other viral diseases